=== PATIENT | female | born 1955 | race Caucasian/White ===

== ENCOUNTER 2017-05-14 17:16 | Inpatient (IN) | payer OTHER ==
[~2017-05-14] VITALS: Ht 5 cm; Wt 76.8 kg
--- NOTE | ~2017-05-14 | EKG ---
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
--- NOTE | ~2017-05-14 | EKG ---
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 : 1955 Requested By: Moreno Thompson Order Number: [id number] MD: Juan José Laboy Measurements Intervals [place] Rate: 64 P: -8 MD: 178 QRS: -24 QRSD: 76 T: 4 QT: 434 QTc: 448 Interpretive Statements Sinus rhythm Left ventricular hypertrophy Inferior infarct, old Anterior infarct, old Compared to ECG 11/11/2015 09:32:34 Left ventricular hypertrophy now present Myocardial infarct finding still present Electronically Signed On 05-15-2017 14:03:24 CDT by Juan José Laboy [email or web address] <ELECTRONICALLY SIGNED> By: Juan José Laboy MD 05/15/17 1403 [id number] 1726 Juan José Laboy MD /EPI
[~2017-05-14 17:16] MED LIST: AMARYL4 MG PO; ASPIRIN325 PO; CHOLESTYRAMINE P4 GM; CIPROFLOXACIN500 M1 PO; CO-ENZYME Q-1010 MG PO; EFFIENT10 MG PO; FLAGYL500 MG PO; FLEXERIL PO; GABAPENTIN600 M1 PO; GLUCOPHAGE1000 MG PO; INVOKANA100 MG PO; JANUVIA100 MG PO; LIPITOR10 MG PO; LISINOPRIL20 MG PO; LORAZEPAM 0.50.5 MG PO; MOBIC15 MG PO; NEURONTIN 300300 M1 PO; NITROGLYCERIN0.4 MG SUBLING; NORCO 5-325 TA1 EACH PO; OMEPRAZOLE40 MG PO; TOPROL XL25 MG PO; TRAZODONE 150150 M1 PO; TRAZODONE HCL50 MG PO
[2017-05-14 17:23] VITALS: BP 226/97
[2017-05-14 17:40] LABS: ABSOLUTE NEUTROPHILS 6.5 thou/uL (1.4-8.2); BASOPHILS 0.5 % (0.0-2.0); EOSINOPHILS 4.9 % (0.0-3.0); HEMATOCRIT 36.7 % (37.0-47.0); HEMOGLOBIN 12.4 gm/dL (12.0-15.0); LYMPHOCYTES 25.6 % (24.0-44.0); MANUAL DIFF NO; MCH 29.8 pg (26.0-34.0); MCHC 33.9 g/dL (28.0-37.0); MCV 87.8 fL (80.0-100.0); MONOCYTES 5.9 % (1.0-8.0); PLATELET COUNT 279 thou/uL (150-400); POLYS 63.1 % (36.0-66.0); RBC 4.17 mil/uL (4.20-5.00); RDW 13.1 % (10.5-14.5); WBC 10.3 thou/uL (4.0-11.0)
[2017-05-14 17:47] LABS: ANION GAP 10 mmol/L (7-16); BUN 22 mg/dL (7-18); CALCIUM 9.1 mg/dL (8.5-10.1); CHLORIDE 99 mmol/L (98-107); CO2 25 mmol/L (21-32); CREATININE 1.6 mg/dL (0.6-1.0); GLUCOSE 180 mg/dL (74-106); SODIUM 134 mmol/L (136-145)
[2017-05-14 17:55] LABS: ALBUMIN 3.3 g/dL (3.4-5.0); ALKALINE PHOSPHATASE 158 U/L (46-116); SGOT 20 U/L (15-37); SGPT 17 U/L (30-65); TOTAL BILIRUBIN 0.2 mg/dL (<0.1-1.0); TOTAL PROTEIN 7.9 g/dL (6.4-8.2)
[2017-05-14] MEDS ORDERED: CELEXA20 MG PO (18:00)
[2017-05-14] MEDS ORDERED: ASPIR 8181 M1 PO (18:07)
[2017-05-14] MEDS ORDERED: CALCIUM 500 +1 EAC5 PO (18:08)
[2017-05-14] MEDS ORDERED: VITAMIN D3400 UNIT PO (18:09)
[2017-05-14] MEDS ORDERED: PLAVIX 75 MG TA75 M1 PO (18:10)
[2017-05-14] MEDS ORDERED: COLACE100 MG PO (18:11)
[2017-05-14] MEDS ORDERED: COENZYME Q10100 MG PO (18:11)
[2017-05-14] MEDS ORDERED: JANUMET 50-1,01 EACH PO (18:12)
[2017-05-14] MEDS ORDERED: ATIVAN0.5 MG PO (18:13)
[2017-05-14] MEDS ORDERED: TOPROL XL50 MG PO (18:14)
[2017-05-14] MEDS ORDERED: MILK OF MA2400 MG/10 PO (18:14)
[2017-05-14] MEDS ORDERED: ONDANSETRON HCL4 M2 PO (18:15)
[2017-05-14] MEDS ORDERED: PROTONIX40 M1 PO (18:15)
[2017-05-14] MEDS ORDERED: TRAMADOL 50 MG50 MG PO (18:16)
[2017-05-14] MEDS ORDERED: FORTEO750 MCG/3 SUBQ (18:16)
[2017-05-14] MEDS ORDERED: TRAZODONE HCL50 MG PO (18:24)
[2017-05-14 18:40] LABS: TROPONIN-I < 0.04 ng/mL (<0.04-0.07)
[2017-05-14 20:42] VITALS: BP 142/50
[2017-05-14 21:44] VITALS: BP 151/65
[2017-05-15 00:11] VITALS: BP 137/54
[2017-05-15 04:45] VITALS: BP 153/80
[2017-05-15 05:08] LABS: HEMATOCRIT 34.2 % (37.0-47.0); HEMOGLOBIN 11.6 gm/dL (12.0-15.0); MCH 29.8 pg (26.0-34.0); MCHC 33.7 g/dL (28.0-37.0); MCV 88.4 fL (80.0-100.0); RBC 3.87 mil/uL (4.20-5.00)
[2017-05-15 05:18] LABS: CALCIUM 8.6 mg/dL (8.5-10.1); CREATININE 1.2 mg/dL (0.6-1.0)
[2017-05-15 05:24] LABS: ALBUMIN 2.8 g/dL (3.4-5.0); TOTAL BILIRUBIN 0.3 mg/dL (<0.1-1.0); TOTAL PROTEIN 6.9 g/dL (6.4-8.2)
[2017-05-15 05:29] LABS: CHOLESTEROL 160 mg/dL (<200); HDL CHOLESTEROL 50 mg/dL (>40); LDL CHOLESTEROL 86 mg/dL (<100); TC:HDL 3.2 Ratio (Not establshd); TRIGLYCERIDE 122 mg/dL (<150); TROPONIN-I < 0.04 ng/mL (<0.04-0.07); VLDL 24 mg/dL (<40)
[2017-05-15 05:33] LABS: SERUM ASSESSMENT Clear
[2017-05-15 09:09] VITALS: BP 192/77
[2017-05-15 11:13] VITALS: BP 186/78
[2017-05-15 15:16] VITALS: BP 177/79
== END 2017-05-15 17:02 | disposition left against medical advice (07) | DRG 438 ==
LOC: ER 17:16 → EROBS 19:50 → 2N 19:50
PROVIDERS: Nurse Practitioner; Nurse Practitioner Family; Physician Assistant
DX: K85.90 Acute pancreatitis without necrosis or infection, unspecified (principal); E43 Unspecified severe protein-calorie malnutrition; N17.9 Acute kidney failure, unspecified; K50.90 Crohn's disease, unspecified, without complications; I10 Essential (primary) hypertension; E11.9 Type 2 diabetes mellitus without complications; M81.0 Age-related osteoporosis without current pathological fracture; M54.32 Sciatica, left side; H40.9 Unspecified glaucoma; I48.91 Unspecified atrial fibrillation; Z53.21 Procedure and treatment not carried out due to patient leaving prior to being seen by health care provider; I25.10 Atherosclerotic heart disease of native coronary artery without angina pectoris; E78.5 Hyperlipidemia, unspecified; Z90.49 Acquired absence of other specified parts of digestive tract; Z87.891 Personal history of nicotine dependence; Z95.5 Presence of coronary angioplasty implant and graft; Z79.899 Other long term (current) drug therapy; I25.2 Old myocardial infarction; Z87.81 Personal history of (healed) traumatic fracture
CPT/HCPCS: 10081

== ENCOUNTER → 2018-03-16 | Outpatient (CLI) | payer OTHER ==
[~2018-03-16] MED LIST changes: +ASPIR 8181 M1 PO; +ATIVAN0.5 MG PO; +CALCIUM 500 +1 EAC5 PO; +CELEXA20 MG PO; +COENZYME Q10100 MG PO; +COLACE100 MG PO; +FORTEO750 MCG/3 SUBQ; +JANUMET 50-1,01 EACH PO; +MILK OF MA2400 MG/10 PO; +ONDANSETRON HCL4 M2 PO; +PLAVIX 75 MG TA75 M1 PO; +PROTONIX40 M1 PO; +TOPROL XL50 MG PO; +TRAMADOL 50 MG50 MG PO; +VITAMIN D3400 UNIT PO
[2018-03-16 08:34] LABS: CREATININE 1.6 mg/dL (0.6-1.0)
== END ==
LOC: CAT 07:53
PROVIDERS: Family Medicine
DX: K76.0 Fatty (change of) liver, not elsewhere classified (principal); K42.9 Umbilical hernia without obstruction or gangrene

== ENCOUNTER 2020-07-04 15:34 | Emergency (ER) | payer OTHER ==
[~2020-07-04] VITALS: Ht 167.6 cm; Wt 76.2 kg
--- NOTE | ~2020-07-04 | EKG ---
[facility] [place] [address] ELECTROCARDIOGRAM REPORT Name: MAI VASQUEZ Room #: [facility]#: [id number] Admission: 07/04/20 Attend Phys: Discharge: Date of : 51 Report #: [id number] THIS REPORT FOR: cc: Constantino James James A. DO Epiphany, Epiphany MD ~ THIS REPORT FOR: //name// [facility] ED Test Date: 2020-07-04 Test Time: 19:06:18 Pat Name: MAI VASQUEZ Department: Room: Gender: F Certified Residential Medication Aide: [facility] : 1955 Requested By: Ronald Jason Order Number: [id number] MD: Measurements Intervals [place] Rate: 71 P: 8 MT: 157 QRS: -28 QRSD: 87 T: 38 QT: 421 QTc: 458 Interpretive Statements Sinus rhythm Left ventricular hypertrophy Inferior infarct, old Anterior Q waves, possibly due to LVH Compared to ECG 05/14/2017 19:30:29 Left ventricular hypertrophy now present Q waves now present Myocardial infarct finding still present [email or web address] By: [id number] Epiphany Epiphany, /EPI
[2020-07-04 16:30] LABS: URINE BILIRUBIN NEGATIVE (Negative); URINE BLOOD 1+ (Negative); URINE CLARITY CLEAR; URINE COLOR YELLOW; URINE GLUCOSE-RANDOM* 3+ (Negative); URINE KETONES TRACE (Negative); URINE LEUKOCYTES-REFLEX NEGATIVE (Negative); URINE NITRITE-REFLEX NEGATIVE (Negative); URINE PROTEIN (DIPSTICK) 3+ (Negative); URINE SPECIFIC GRAVITY >= 1.030 (1.005-1.035); URINE UROBILINOGEN 0.2 E.U./dl (0.2-1.0)
[2020-07-04 16:38] LABS: BACTERIA-REFLEX None Seen /HPF (None Seen); CRYSTALS None Seen /LPF (None Seen); SQUAMOUS 0-3 Few /LPF (0-3); URINE RBC None Seen /HPF (0-2); URINE WBC-REFLEX None Seen /HPF (0-5)
[2020-07-04 17:20] LABS: ABSOLUTE NEUTROPHILS 7.8 thou/uL (1.4-8.2); BASOPHILS 0.4 % (0.0-2.0); EOSINOPHILS 2.5 % (0.0-3.0); HEMATOCRIT 35.2 % (37.0-47.0); LYMPHOCYTES 23.8 % (24.0-44.0); MCH 28.7 pg (26.0-34.0); MCHC 34.1 g/dL (28.0-37.0); MCV 84.3 fL (80.0-100.0); PLATELET COUNT 305 thou/uL (150-400); POLYS 67.3 % (36.0-66.0); RBC 4.17 mil/uL (4.20-5.00); RDW 13.3 % (10.5-14.5); WBC 11.5 thou/uL (4.0-11.0)
[2020-07-04 17:27] LABS: ANION GAP 7 mmol/L (7-16); BUN 17 mg/dL (7-18); CALCIUM 8.3 mg/dL (8.5-10.1); CHLORIDE 97 mmol/L (98-107); CO2 29 mmol/L (21-32); CREATININE 1.5 mg/dL (0.6-1.0); GLUCOSE 331 mg/dL (74-106); POTASSIUM 3.7 mmol/L (3.5-5.1); SODIUM 133 mmol/L (136-145)
[2020-07-04 17:38] LABS: ALBUMIN 2.5 g/dL (3.4-5.0); LIPASE 352 U/L (73-393); SGOT 10 U/L (15-37); SGPT 11 U/L (30-65); TOTAL BILIRUBIN 0.1 mg/dL (0.2-1.0); TOTAL PROTEIN 6.9 g/dL (6.4-8.2); TROPONIN-I <0.06 ng/mL (<0.06)
[2020-07-04] MEDS ORDERED: TRAMADOL 50 MG50 MG PO (19:23)
[2020-07-04] MEDS ORDERED: PROTONIX40 MG PO (19:23)
[2020-07-04 20:28] VITALS: BP 180/82
== END 2020-07-04 20:20 | disposition home or self-care (01) ==
LOC: ER 15:34
PROVIDERS: Emergency Medicine
DX: I70.90 Unspecified atherosclerosis (principal); K59.00 Constipation, unspecified; E88.09 Other disorders of plasma-protein metabolism, not elsewhere classified; E11.65 Type 2 diabetes mellitus with hyperglycemia; R80.9 Proteinuria, unspecified; I48.91 Unspecified atrial fibrillation; E78.5 Hyperlipidemia, unspecified; I25.2 Old myocardial infarction; I12.9 Hypertensive chronic kidney disease with stage 1 through stage 4 chronic kidney disease, or unspecified chronic kidney disease; E11.22 Type 2 diabetes mellitus with diabetic chronic kidney disease; N18.9 Chronic kidney disease, unspecified; Z90.89 Acquired absence of other organs; Z79.82 Long term (current) use of aspirin; Z79.899 Other long term (current) drug therapy